=== PATIENT | female | born 1985 | race Hispanic/Latino ===

== ENCOUNTER → 2025-04-21 | Day surgery (SDC) | payer OTHER ==
[~2025-04-21] MED LIST: LIDOCAINE HCL 2% LOCAL INJ 5 ML SDV VIAL INJ ONE; PROPOFOL IV EMULSION 10 MG/ML 20 ML VIAL ONE
[2025-04-21] MEDS: LACTATED RINGER'S 1,000 ML ONE (06:03)
[2025-04-21 08:05] VITALS: BP 114/72; PULSE 71; RESP 16; O2SAT 96
== END | disposition home or self-care (01) ==
LOC: OR 05:23
PROVIDERS: ATTEND Internal Medicine Gastroenterology
DX: K29.50 Unspecified chronic gastritis without bleeding (principal); B96.81 Helicobacter pylori [H. pylori] as the cause of diseases classified elsewhere; K44.9 Diaphragmatic hernia without obstruction or gangrene; R73.03 Prediabetes; E28.2 Polycystic ovarian syndrome; E66.813 Obesity, class 3; Z68.41 Body mass index [BMI] 40.0-44.9, adult; Z98.84 Bariatric surgery status; Z01.818 Encounter for other preprocedural examination
CPT/HCPCS: 43239; 81025; J2003; J2470; J2704; J7121

== ENCOUNTER → 2025-04-27 | Outpatient (REF) | payer OTHER | LOC: US 09:01 | PROVIDERS: ATTEND Nurse Practitioner | DX: R10.10 Upper abdominal pain, unspecified (principal) | CPT/HCPCS: 76700 ==